=== PATIENT | female | born 2000 | race Caucasian/White ===

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

== ENCOUNTER → 2019-01-10 | Outpatient (CLI) | payer OTHER ==
[2019-01-10 18:30] LABS: T.VAGINALIS (WET MOUNT) NO TRICHOMONAS SEEN
[2019-01-10 18:31] LABS: EPITHELIALS (WET MOUNT) 3+ EPITHELIALS SEEN; WBCS (WET MOUNT) RARE WBCS SEEN; YEAST (WET MOUNT) NO YEAST SEEN
[2019-01-10 20:16] LABS: CHLAM PCR NOT DETECTED (NOT DETECT)
== END ==
LOC: LAB 18:22
PROVIDERS: ATTEND Nurse Practitioner Acute Care
DX: N89.8 Other specified noninflammatory disorders of vagina (principal)
CPT/HCPCS: 87210; 87491; 87591

== ENCOUNTER 2019-03-01 12:42 | Emergency (ER) | payer OTHER ==
--- NOTE | 2019-03-01 13:25 | ER Document Report ---
ED Medical Screen (RME) - General Chief Complaint: Abdominal Pain Stated Complaint: NAUSEA Time Seen by Provider: 03/01/19 13:18 Primary Care Provider: KASEY ROY NP [Primary Care Provider] - Follow up as needed Notes: Patient is a 18-year-old female who presents to the emergency department with a chief complaint of lower abdominal pain. Her pain is on bilateral signs. States that her last menstrual cycle was on 18 February, but states that it was very light and not her normal. She states that she feels nauseated. Denies any vomiting. She has history of an IUD placement. States that she has vaginal dis charge, but nothing out of the ordinary and denies any foul odors. Patient states that she took tests at home and they were all negative. Exam: Mildly tender bilateral lower pelvic area. Exam limited due to patient in sitting position. I have greeted and performed a rapid initial assessment of this patient. A comprehensive ED assessment and evaluation of the patient, analysis of test results and completion of medical decision making process will be conducted by an additional ED providers. TRAVEL OUTSIDE OF THE [place] IN LAST 30 DAYS: No - Related Data Allergies/Adverse Reactions: No Known Allergies Allergy (Verified 03/01/19 13:14) Past Medical History - Social History Chew tobacco use (# tins/day): No Frequency of alcohol use: None Drug Abuse: None Renal/ Medical History: Denies: Hx Peritoneal Dialysis Physical Exam - Vital signs Vitals: Temp Pulse BP Pulse Ox 98.6 F 85 122/70 98 03/01/19 12:47 03/01/19 12:47 03/01/19 12:47 03/01/19 12:47 Course - Vital Signs Vital signs: Temp Pulse Resp BP Pulse Ox 98.6 F 85 122/70 98 03/01/19 12:47 03/01/19 12:47 03/01/19 12:47 03/01/19 12:47 Doctor's Discharge - Discharge Referrals: KASEY ROY NP [Primary Care Provider] - Follow up as needed
[2019-03-01 13:53] LABS: ABSOLUTE EOSINOPHILS # (AUTO) 0.1 10^3/uL (0.0-0.6); ABSOLUTE LYMPHOCYTES (AUTO) 1.7 10^3/uL (0.5-4.7); ABSOLUTE MONOCYTES (AUTO) 0.6 10^3/uL (0.1-1.4); ABSOLUTE NEUT (AUTO) 5.2 10^3/uL (1.7-8.2); BASOPHILS % (AUTO) 0.5 % (0-2); EOSINOPHILS % (AUTO) 0.9 % (0-6); HEMATOCRIT 42.1 % (36.0-47.0); HEMOGLOBIN 14.4 g/dL (12.0-15.5); LYMPHOCYTES % (AUTO) 22.6 % (13-45); MEAN CORPUSCULAR HEMOGLOBIN 29.4 pg (27.0-33.4); MEAN CORPUSCULAR HGB CONC 34.2 g/dL (32.0-36.0); MEAN CORPUSCULAR VOLUME 86 fl (80-97); MONOCYTES % (AUTO) 7.8 % (3-13); PLATELET COUNT 208 10^3/uL (150-450); RED BLOOD COUNT 4.89 10^6/uL (3.72-5.28); RED CELL DISTRIBUTION WIDTH 13.1 % (11.5-14.0); SEGMENTED NEUTROPHILS % (AUTO) 68.2 % (42-78); TOTAL CELLS COUNTED % (AUTO) 100 %; WHITE BLOOD COUNT 7.7 10^3/uL (4.0-10.5)
[2019-03-01 14:25] LABS: ALBUMIN 4.6 g/dL (3.5-5.0); ALKALINE PHOSPHATASE 48 U/L (38-126); ANION GAP 9 (5-19); ASPARTATE AMINO TRANSFERASE 23 U/L (14-36); BILIRUBIN,TOTAL 0.6 mg/dL (0.2-1.3); BLOOD UREA NITROGEN 9 mg/dL (7-20); CALCIUM 9.5 mg/dL (8.4-10.2); CARBON DIOXIDE 29 mmol/L (22-30); CHLORIDE 100 mmol/L (98-107); GLUCOSE 78 mg/dL (75-110); POTASSIUM 4.1 mmol/L (3.6-5.0); TOTAL PROTEIN 7.7 g/dL (6.3-8.2)
[2019-03-01] MEDS ORDERED: KETOROLAC TROMETHAMINE INJ/PF 30 MG/1 ML SDV IM ONE (17:19)
--- NOTE | 2019-03-01 17:19 | RADIOLOGY REPORT (SQ) ---
EXAM DESCRIPTION: U/S NON OB PEL TV W/DOPPLER COMPLETED DATE/TIME: 03/01/2019 5:05 pm REASON FOR STUDY: pelvic pain LMP 02/18/2019 COMPARISON: None. TECHNIQUE: Dynamic and static grayscale images acquired of the pelvis via transvaginal approach and recorded on PACS. Additional selected color Doppler and spectral images recorded. LIMITATIONS: None. FINDINGS: UTERUS: Contour normal. No mass. ENDOMETRIAL STRIPE: No focal or generalized thickening. No masses. CERVIX: 2.7 cm. No nabothian cysts. RIGHT OVARY AND DOPPLER: Normal size. No worrisome masses. Normal arterial vascular flow without evid ence for torsion. 1.4 x 0.9 x 1.1 cm cyst. LEFT OVARY AND DOPPLER: Normal size. No worrisome masses. Normal arterial vascular flow without evide nce for torsion. FREE FLUID: None noted. OTHER: No other significant finding. MEASUREMENTS: UTERUS: 7.8 x 3.5 x 3.1 cm. ENDOMETRIAL STRIPE: 6 mm. RIGHT OVARY: 3 x 2.3 x 2.4 cm. LEFT OVARY: 2.2 x 2.2 x 1.2 cm. IMPRESSION: NORMAL TRANSVAGINAL PELVIC ULTRASOUND. TECHNICAL DOCUMENTATION: JOB ID: [id number] [email or web address]- All Rights Reserved Rev-10/09 Reading location - IP/workstation name: [email or web address]
--- NOTE | 2019-03-01 17:26 | ER Document Report ---
ED GI/ - General Chief Complaint: Abdominal Pain Stated Complaint: NAUSEA Time Seen by Provider: 03/01/19 13:18 Primary Care Provider: KASEY ROY NP [NURSE PRACTITIONER] - Follow up as needed Mode of Arrival: Ambulatory Information source: Patient Notes: 18-year-old female presented to ED for complaint of lower abdominal pain. She does states that her last menstrual period was February 18. She states she has had an IUD in the past but does not have one at this time. She states she is not on control in is not actively trying to get but is not preventing it. She states she has not had any nausea or vomiting she has not had any pain or burning with urination no dysuria. She states she does have a normal white vaginal discharge. She states she has had a blood pressure of 90s over 60s for a couple weeks. She states her normal is 120s over 60s to 70s. Patient is alert oriented respirations regular nonlabored speaking in full sentences. Her blood work is completely normal she is not . Urine has been sent and we are waiting for those results. The ultrasound shows the right ovary a little bigger than the left but no other significant findings. TRAVEL OUTSIDE OF THE [place] IN LAST 30 DAYS: No - HPI Patient complains to provider of: Onset: Other - 2 days for the pelvic pain, white discharge for couple weeks, low blood pressure for couple weeks Quality of pain: Achy, Cramping Severity at maximum: Mild Severity in ED: Mild, Moderate Pain Level: 2 Location: Pelvis - Bilateral, Other - Headache intermittently Vaginal bleeding (Compared to normal period): None LMP: 02/18/2019 Associated symptoms: Vaginal discharge - Her normal white discharge, Other - States her last menstrual period on 02/18 was only lasted 2 days and was very light. denies: Dysuria Exacerbated by: Denies Relieved by: Denies Similar symptoms previously: Yes Recently seen / treated by doctor: No - Related Data Allergies/Adverse Reactions: No Known Allergies Allergy (Verified 03/01/19 13:14) Past Medical History - General Information source: Patient - Social History Smoking Status: Never Smoker Chew tobacco use (# tins/day): No Frequency of alcohol use: None Drug Abuse: None Lives with: Family Family History: Reviewed & Not Pertinent Patient has suicidal ideation: No Patient has homicidal ideation: No - Past Medical History Cardiac Medical History: Reports: None Pulmonary Medical History: Reports: None EENT Medical History: Reports: None Endocrine Medical History: Reports: None Renal/ Medical History: Reports: None Malignancy Medical History: Reports: None GI Medical History: Reports: None Musculoskeletal Medical History: Reports None Skin Medical History: Reports None Psychiatric Medical History: Reports: None Traumatic Medical History: Reports: None Infectious Medical History: Reports: None Surgical Hx: Negative Past Surgical History: Reports: None - Immunizations Immunizations up to date: Yes Hx Diphtheria, Pertussis, Tetanus Vaccination: Yes Review of Systems - Review of Systems Constitutional: No symptoms reported EENT: No symptoms reported Cardiovascular: No symptoms reported Respiratory: No symptoms reported Gastrointestinal: No symptoms reported Genitourinary: No symptoms reported Female Genitourinary: Vaginal discharge, Other - Pelvic tenderness. denies: Vaginal odor - Normal white Musculoskeletal: No symptoms reported Skin: No symptoms reported Hematologic/Lymphatic: No symptoms reported Neurological/Psychological: No symptoms reported -: Yes All other systems reviewed and negative Physical Exam - Vital signs Vitals: Temp Pulse BP Pulse Ox 98.6 F 85 122/70 98 03/01/19 12:47 03/01/19 12:47 03/01/19 12:47 03/01/19 12:47 Interpretation: Normal - General General appearance: Appears well, Alert - HEENT Head: Normocephalic, Atraumatic Eyes: Normal Pupils: PERRL - Respiratory Respiratory status: No respiratory distress Chest status: Nontender Breath sounds: Normal Chest palpation: Normal - Cardiovascular Rhythm: Regular Heart sounds: Normal auscultation Murmur: No - Abdominal Inspection: Normal Distension: No distension Bowel sounds: Normal Tenderness: Tender - Very mild pelvic tenderness does not want a pelvic or swabs done she states she does not need this and does not want it done Organomegaly: No organomegaly - Back Back: Normal, Nontender - Extremities General upper extremity: Normal inspection, Nontender, Normal color, Normal ROM, Normal temperature General lower extremity: Normal inspection, Nontender, Normal color, Normal ROM, Normal temperature, Normal weight bearing. No: Ryan's sign - Neurological Neuro grossly intact: Yes Cognition: Normal Orientation: AAOx4 Noe Coma Scale Eye Opening: Spontaneous Noe Coma Scale Verbal: Oriented Noe Coma Scale Motor: Obeys Commands Noe Coma Scale Total: 15 Speech: Normal Motor strength normal: LUE, RUE, LLE, RLE Sensory: Normal - Psychological Associated symptoms: Normal affect, Normal mood - Skin Skin Temperature: Warm Skin Moisture: Dry Skin Color: Normal Course - Re-evaluation Re-evalutation: 03/02/19 02:35 Labs and ultrasound results discussed with patient and written report of labs and ultrasound given to patient. There is no obvious reason for the pain and discomfort patient is having. There is no obvious abnormalities on the labs or ultrasound. Patient was discharged home with instructions to please follow-up with her primary care doctor. Patient verbalized understanding and agreement with treatment plan before she was discharged. - Vital Signs Vital signs: Temp Pulse Resp BP Pulse Ox 98.6 F 65 18 105/65 100 03/01/19 12:47 03/01/19 17:40 03/01/19 17:40 03/01/19 17:40 03/01/19 17:40 - Laboratory Result Diagrams: 03/01/19 13:30 03/01/19 13:30 Laboratory results interpreted by me: 03/01/19 13:25 Urine Urobilinogen 2.0 H - Diagnostic Test Radiology reviewed: Image reviewed, Reports reviewed Discharge - Discharge Clinical Impression: Tenderness of female pelvic organs Condition: Stable Disposition: HOME, SELF-CARE Additional Instructions: PELVIC PAIN: There are many causes of pain in the pelvic area. The cause could be the tubes, ovaries, uterus, intestines, appendix, pelvic muscles and connective tissue, or the urinary tract. The cause of your pelvic pain is not clear. However, it seems safe to treat you outside the hospital. If the pain sounds like a temporary problem, we sometimes wait to see if it goes away. Other patients may need additional tests, such as pelvic ultrasound or cultures. Conditions may change. Call us or come back for reexamination if any problems occur, such as: (1) Pain that becomes more severe, steady, or becomes concentrated in one specific area. Also, pain that is more severe with movement or coughing. (2) Vomiting that persists or becomes more frequent. (3) Blood in the vomitus, urine, or bowel movements. Blood in the stool may have a tarry or black appearance. (4) Shaking chills or fever greater than 100 degrees. (5) The abdomen becomes more distended or swollen. (6) Bowel movements cease. (7) Heavy vaginal bleeding. TORADOL INJECTION: You have been given an injection of ketorolac tromethamine (Toradol). This is an excellent, safe drug for pain control. It also has potent antiinflammatory action. You should have significant pain relief within about one hour. Toradol is not addicting and is non-sedating. It does not interfere with driving or work. Call or return if you develop itching, hives, shortness of breath, or rash. Acetaminophen Acetaminophen may be taken for pain relief or fever control. It's much safer than aspirin, offering a wider range of "safe" dosages. It is safe during . Some brand names are Tylenol, Panadol, Datril, Anacin 3, Tempra, and Liquiprin. Acetaminophen can be repeated every four hours. The following are maximum recommended dosages: WEIGHT Dose Drops Elixir Chewable(80mg) (LBS.) drprs=droppers tsp=teaspoon 6 40 mg .4 ml (1/2) 6-11 80 mg .8 ml (full) 1/2 tsp 1 tab 12-16 120 mg 1 1/2 drprs 3/4 tsp 1 1/2 tabs 17-23 160 mg 2 drprs 1 tsp 2 tabs 24-30 240 mg 3 drprs 1 1/2 tsp 3 tabs 30-35 320 mg 2 tsp 4 tabs 36-41 360 mg 2 1/4 tsp 4 1/2 tabs 42-47 400 mg 2 1/2 tsp 5 tabs 48-53 480 mg 3 tsp 6 tabs 54-59 520 mg 3 1/4 tsp 6 1/2 tabs 60-64 560 mg 3 1/2 tsp 7 tabs 65-70 600 mg 3 3/4 tsp 7 1/2 tabs 71-76 640 mg 4 tsp 8 tabs 77-82 720 mg 4 1/2 tsp 9 tabs 83-88 800 mg 5 tsp 10 tabs >89 pounds or adults 650 mg to 900 mg Acetaminophen can be repeated every four hours. Maximum daily dose not to exceed 4000 mg. These maximum recommended dosages are slightly higher than the dosages written on the product container, but these dosages are very safe and well below the toxic dosage for acetaminophen. Ibuprofen Ibuprofen is an excellent, safe drug for pain control. In addition, it has potent antiinflammatory effects which are beneficial, especially in the treat ment of injuries, arthritis, or tendonitis. It's best to take ibuprofen with food. Persons with ulcer disease or allergy to aspirin should notify their physician of this before taking ibuprofen. Take the medication exactly as prescribed. Don't take additional doses unless instructed to do so by your doctor. If you develop wheezing, shortness of breath, hives, faintness, stomach pain, vomiting, or dark black stools, return for re-evaluation at once. FOLLOW-UP CARE: If you have been referred to a physician for follow-up care, call the physicians office for an appointment as you were instructed or within the next two days. If you experience worsening or a significant change in your symptoms, notify the physician immediately or return to the Emergency Department at any ti me for re-evaluation. Referrals: KASEY ROY NP [NURSE PRACTITIONER] - Follow up as needed
[2019-03-01 17:36] LABS: APPEARANCE,URINE SLIGHTLY-CLOUDY; BILIRUBIN,URINE NEGATIVE (NEGATIVE); COLOR,URINE YELLOW; GLUCOSE, URINE NEGATIVE (NEGATIVE); KETONES,URINE NEGATIVE (NEGATIVE); LEUKOCYTE ESTERASE,URINE NEGATIVE (NEGATIVE); NITRITE,URINE NEGATIVE (NEGATIVE); PROTEIN,URINE NEGATIVE (NEGATIVE); URINE SPECIFIC GRAVITY 1.019
[2019-03-01 17:44] VITALS: BP 105/65
== END 2019-03-01 17:42 | disposition home or self-care (01) ==
LOC: ER 12:42
DX: R10.819 Abdominal tenderness, unspecified site (principal); R10.2 Pelvic and perineal pain; R51 Headache; N89.8 Other specified noninflammatory disorders of vagina
CPT/HCPCS: 36415; 84702; 84703; 85025; 80053; 81001; 76830; 93976; J1885; 96372; 99284

== ENCOUNTER 2019-05-04 11:13 | Emergency (ER) | payer OTHER ==
[2019-05-04 12:10] LABS: ABSOLUTE EOSINOPHILS # (AUTO) 0.1 10^3/uL (0.0-0.6); ABSOLUTE LYMPHOCYTES (AUTO) 2.6 10^3/uL (0.5-4.7); ABSOLUTE MONOCYTES (AUTO) 0.6 10^3/uL (0.1-1.4); ABSOLUTE NEUT (AUTO) 4.9 10^3/uL (1.7-8.2); BASOPHILS % (AUTO) 0.3 % (0-2); EOSINOPHILS % (AUTO) 1.3 % (0-6); HEMATOCRIT 42.9 % (36.0-47.0); LYMPHOCYTES % (AUTO) 31.3 % (13-45); MEAN CORPUSCULAR HGB CONC 34.9 g/dL (32.0-36.0); MEAN CORPUSCULAR VOLUME 86 fl (80-97); PLATELET COUNT 208 10^3/uL (150-450); RED CELL DISTRIBUTION WIDTH 12.8 % (11.5-14.0); SEGMENTED NEUTROPHILS % (AUTO) 60.1 % (42-78); TOTAL CELLS COUNTED % (AUTO) 100 %; WHITE BLOOD COUNT 8.2 10^3/uL (4.0-10.5)
[2019-05-04 12:14] LABS: AMORPHOUS SEDIMENT,URINE TRACE /HPF; APPEARANCE,URINE CLOUDY; BILIRUBIN,URINE NEGATIVE (NEGATIVE); COLOR,URINE YELLOW; GLUCOSE, URINE NEGATIVE (NEGATIVE); KETONES,URINE NEGATIVE (NEGATIVE); LEUKOCYTE ESTERASE,URINE TRACE (NEGATIVE); NITRITE,URINE NEGATIVE (NEGATIVE); PROTEIN,URINE NEGATIVE (NEGATIVE); URINE SPECIFIC GRAVITY 1.021; UROBILINOGEN,URINE NEGATIVE mg/dL (<2.0)
[2019-05-04 12:28] LABS: ALBUMIN 4.5 g/dL (3.5-5.0); ALKALINE PHOSPHATASE 41 U/L (38-126); ANION GAP 11 (5-19); ASPARTATE AMINO TRANSFERASE 24 U/L (14-36); BILIRUBIN,TOTAL 0.7 mg/dL (0.2-1.3); BLOOD UREA NITROGEN 10 mg/dL (7-20); CALCIUM 9.2 mg/dL (8.4-10.2); CARBON DIOXIDE 26 mmol/L (22-30); CHLORIDE 104 mmol/L (98-107); GLUCOSE 73 mg/dL (75-110); POTASSIUM 3.6 mmol/L (3.6-5.0); TOTAL PROTEIN 7.5 g/dL (6.3-8.2)
--- NOTE | 2019-05-04 13:10 | ER Document Report ---
ED General - General Chief Complaint: Abdominal Pain Stated Complaint: ABDOMINAL PAIN Time Seen by Provider: 05/04/19 13:09 Mode of Arrival: Ambulatory Information source: Patient Notes: This 19-year-old female presents emergency department with complaints of abdominal pain, nausea, and diarrhea once in the past 3 days. Patient reports she took 2 home test and they were both positive. She denies fever vomiting. Denies pain with void. Denies vaginal discharge. Reports she does have a history of ulcer but is not under any kind of treatment. TRAVEL OUTSIDE OF THE [place] IN LAST 30 DAYS: No - HPI Onset: Other Onset/Duration: Persistent Quality of pain: Cramping Associated symptoms: Diarrhea Exacerbated by: Denies Relieved by: Denies Similar symptoms previously: No Recently seen / treated by doctor: No - Related Data Allergies/Adverse Reactions: No Known Allergies Allergy (Verified 03/01/19 13:14) Past Medical History - General Information source: Patient Last Menstrual Period: April 11 - Social History Smoking Status: Never Smoker Frequency of alcohol use: None Drug Abuse: None Occupation: Nursing school Lives with: Family Family History: Reviewed & Not Pertinent Patient has suicidal ideation: No Patient has homicidal ideation: No Renal/ Medical History: Denies: Hx Peritoneal Dialysis GI Medical History: Reports: Hx Irritable Bowel, Hx Ulcer Surgical Hx: Negative - Immunizations Immunizations up to date: Yes Hx Diphtheria, Pertussis, Tetanus Vaccination: Yes Review of Systems - Review of Systems Notes: Review HPI for review of systems., All other systems negative Physical Exam - Vital signs Vitals: Temp Pulse Resp BP Pulse Ox 98.0 F 79 16 105/64 100 05/04/19 12:10 05/04/19 12:10 05/04/19 12:10 05/04/19 12:10 05/04/19 12:10 - Notes Notes: PHYSICAL EXAMINATION: GENERAL: Well-appearing and in no acute distress HEAD: Atraumatic, normocephalic. EYES: Pupils equal round and reactive to light, extraocular movements intact, sclera anicteric, conjunctiva are normal. ENT: nares patent, oropharynx clear without exudates. Moist mucous membranes. NECK: Normal range of motion, supple without lymphadenopathy LUNGS: CTAB and equal. No wheezes rales or rhonchi. HEART: Regular rate and rhythm without murmurs ABDOMEN: Soft, no tenderness. No guarding, no rebound EXTREMITIES: Normal range of motion, NEUROLOGICAL: Cranial nerves grossly intact. Normal sensory/motor exams. PSYCH: Normal mood, normal affect. SKIN: Warm, Dry, normal turgor, no rashes or lesions noted Course - Re-evaluation Re-evalutation: 05/04/19 13:22 19-year-old female presents with complaints of lower abdominal pain nausea and diarrhea x1 in the past 3 days. Denies fever and vomiting. Reports she took 2 home test and they were both positive. Patient would like a serum blood test for . 05/04/19 HCG 26., Pt was instructed on this, instructed on no IUP visualized on US probably due to early but cannot rule out ectopic. she was educated on importance of fu hcg, need for repeat US, instructed on importance of return to ED for extreme pain, vaginal bleeding. She verbalized understanding to all instructions. 05/04/19 11:55 05/04/19 11:55 MCV 86 fl (80-97) 05/04/19 11:55 MCH 30.0 pg (27.0-33.4) 05/04/19 11:55 MCHC 34.9 g/dL (32.0-36.0) 05/04/19 11:55 RDW 12.8 % (11.5-14.0) 05/04/19 11:55 Seg Neutrophils % 60.1 % (42-78) 05/04/19 11:55 Chloride 104 mmol/L (98-107) 05/04/19 11:55 Carbon Dioxide 26 mmol/L (22-30) 05/04/19 11:55 Anion Gap 11 (5-19) 05/04/19 11:55 Est GFR ( Amer) > 60 (>60) 05/04/19 11:55 Glucose 73 mg/dL (75-110) L 05/04/19 11:55 Calcium 9.2 mg/dL (8.4-10.2) 05/04/19 11:55 Total Bilirubin 0.7 mg/dL (0.2-1.3) 05/04/19 11:55 AST 24 U/L (14-36) 05/04/19 11:55 Alkaline Phosphatase 41 U/L (38-126) 05/04/19 11:55 Total Protein 7.5 g/dL (6.3-8.2) 05/04/19 11:55 Albumin 4.5 g/dL (3.5-5.0) 05/04/19 11:55 Lipase 141.5 U/L (23-300) 05/04/19 11:55 Serum HCG, Qual POSITIVE (NEGATIVE) H 05/04/19 11:55 Urine Color YELLOW 05/04/19 11:55 Urine Appearance CLOUDY 05/04/19 11:55 Urine pH 7.0 (5.0-9.0) 05/04/19 11:55 Ur Specific [place] 1.021 05/04/19 11:55 Urine Protein NEGATIVE mg/dL (NEGATIVE) 05/04/19 11:55 Urine Glucose (UA) NEGATIVE mg/dL (NEGATIVE) 05/04/19 11:55 Urine Ketones NEGATIVE mg/dL (NEGATIVE) 05/04/19 11:55 Urine Blood NEGATIVE (NEGATIVE) 05/04/19 11:55 Urine Nitrite NEGATIVE (NEGATIVE) 05/04/19 11:55 Ur Leukocyte Esterase TRACE (NEGATIVE) H 05/04/19 11:55 Urine WBC (Auto) 0 /HPF 05/04/19 11:55 Obstetrics Ultrasound 05/04/19 14:00 IMPRESSION: NO VISUALIZED INTRA- OR EXTRAUTERINE . ECTOPIC CANNOT BE EXCLUDED. FOLLOW-UP ULTRASOUND AND SERIAL BHCG LEVELS STRONGLY RECOMMENDED TO ACCURATELY ASSESS STATUS. 05/04/19 19:13 - Vital Signs Vital signs: Temp Pulse Resp BP Pulse Ox 98.2 F 72 16 122/66 100 05/04/19 16:25 05/04/19 16:25 05/04/19 16:25 05/04/19 16:25 05/04/19 16:25 - Laboratory Result Diagrams: 05/04/19 11:55 05/04/19 11:55 Laboratory results interpreted by me: 05/04/19 05/04/19 05/04/19 11:55 11:55 11:55 Glucose 73 L Serum HCG, Qual POSITIVE H Beta HCG, Quant Ur Leukocyte Esterase TRACE H 05/04/19 11:55 Glucose Serum HCG, Qual Beta HCG, Quant 26.60 H Ur Leukocyte Esterase - Diagnostic Test Radiology reviewed: Reports reviewed Discharge - Discharge Clinical Impression: Abdominal pain Qualifiers: Abdominal location: lower abdomen, unspecified Qualified Code(s): R10.30 - Lower abdominal pain, unspecified Qualifiers: Weeks of gestation: less than 8 weeks Qualified Code(s): Z3A.01 - Less than 8 weeks gestation of Condition: Stable Disposition: HOME, SELF-CARE Instructions: Abdominal Pain ([facility]), Ectopic Precaution ([facility]), [employer] Doctors, [facility], ([facility]) Additional Instructions: *You have been evaluated for abdominal pain, *Your ultrasound was inconclusive. This may be due because it is an early or you may have an ectopic regnancy *Follow-up in 2 days for repeat hCG. Plan a repeat ultrasound in 1 week *Your hCG level was 26.60. You may call [facility] at [phone] on from 10a - 10 p *Follow up with a primary care provider within one week *Return to ED for worsening condition, changes, needs *Return to ED if not better in 24 hours Forms: Follow-Up Laboratory Testing
--- NOTE | 2019-05-04 16:02 | RADIOLOGY REPORT (SQ) ---
EXAM DESCRIPTION: U/S OB TRANSVAGINAL W/O DOP COMPLETED DATE/TIME: 05/04/2019 3:43 pm REASON FOR STUDY: preg abd pain COMPARISON: None. TECHNIQUE: Transvaginal static and realtime grayscale images acquired of the pelvis. Additional vicente cted spectral and color Doppler images recorded. All images stored on PACs. CLINICAL AGE: Last menses 04/11/2019 BHCG: Pending LIMITATIONS: None. FINDINGS: UTERUS: No visualized intrauterine . Uterus is 7 x 4.5 x 3 cm in size RIGHT ADNEXA: Normal ovary with normal vascular flow. Right ovary 3.7 x 2.9 x 2.3 cm. No adnexal free fluid. No adnexal masses. LEFT ADNEXA: Normal ovary with normal vascular flow. Left ovary 2.6 x 3 x 1.6 cm No adnexal free fluid. No adnexal masses. FREE FLUID: None. OTHER: No other significant finding. IMPRESSION: NO VISUALIZED INTRA- OR EXTRAUTERINE . ECTOPIC CANNOT BE EXCLUDED. FOLLOW-UP ULTRASOUND AND SERIAL BHCG LEVELS STRONGLY RECOMMENDED TO ACCURATELY ASSESS STATU S. TECHNICAL DOCUMENTATION: JOB ID: [id number] [employer]- All Rights Reserved Reading location - IP/workstation name: [email or web address]
[2019-05-04 16:26] VITALS: BP 122/66
== END 2019-05-04 16:25 | disposition home or self-care (01) ==
LOC: ER 11:13
DX: O26.91 Pregnancy related conditions, unspecified, first trimester (principal); R10.30 Lower abdominal pain, unspecified; R11.0 Nausea; R19.7 Diarrhea, unspecified; Z3A.01 Less than 8 weeks gestation of pregnancy
CPT/HCPCS: 36415; 76817; 80053; 81001; 81025; 83690; 84702; 84703; 85025; 99284

== ENCOUNTER → 2019-05-06 | Outpatient (CLI) | payer OTHER | LOC: OD 13:05 | PROVIDERS: ATTEND Nurse Practitioner Family | DX: O26.899 Other specified pregnancy related conditions, unspecified trimester (principal); R10.9 Unspecified abdominal pain | CPT/HCPCS: 36415; 84702 ==

== ENCOUNTER 2019-05-13 04:22 | Emergency (ER) | payer OTHER ==
[2019-05-13 04:27] VITALS: BP 138/77
[2019-05-13] MEDS ORDERED: ONDANSETRON 4 MG TAB.RAPDIS PO ONE (04:34)
[2019-05-13 05:22] LABS: HEMATOCRIT 46.2 % (36.0-47.0); MEAN CORPUSCULAR HEMOGLOBIN 29.9 pg (27.0-33.4); MEAN CORPUSCULAR HGB CONC 34.6 g/dL (32.0-36.0); MEAN CORPUSCULAR VOLUME 86 fl (80-97); PLATELET COUNT 194 10^3/uL (150-450); RED BLOOD COUNT 5.34 10^6/uL (3.72-5.28); RED CELL DISTRIBUTION WIDTH 13.2 % (11.5-14.0); WHITE BLOOD COUNT 13.5 10^3/uL (4.0-10.5)
[2019-05-13 05:31] LABS: APPEARANCE,URINE SLIGHTLY-CLOUDY; BILIRUBIN,URINE NEGATIVE (NEGATIVE); COLOR,URINE YELLOW; GLUCOSE, URINE NEGATIVE (NEGATIVE); KETONES,URINE 20 mg/dL (NEGATIVE); LEUKOCYTE ESTERASE,URINE NEGATIVE (NEGATIVE); NITRITE,URINE NEGATIVE (NEGATIVE); PROTEIN,URINE NEGATIVE (NEGATIVE); URINE SPECIFIC GRAVITY 1.024; UROBILINOGEN,URINE NEGATIVE mg/dL (<2.0)
[2019-05-13 05:34] LABS: ALBUMIN 4.9 g/dL (3.5-5.0); ALKALINE PHOSPHATASE 48 U/L (38-126); ANION GAP 11 (5-19); ASPARTATE AMINO TRANSFERASE 24 U/L (14-36); BILIRUBIN,DIRECT 0.1 mg/dL (0.0-0.4); BILIRUBIN,TOTAL 1.2 mg/dL (0.2-1.3); BLOOD UREA NITROGEN 10 mg/dL (7-20); CALCIUM 9.3 mg/dL (8.4-10.2); CARBON DIOXIDE 25 mmol/L (22-30); CHLORIDE 105 mmol/L (98-107); GLUCOSE 113 mg/dL (75-110); TOTAL PROTEIN 8.1 g/dL (6.3-8.2)
[2019-05-13 05:48] LABS: ABSOLUTE LYMPHOCYTES# (MANUAL) 0.5 10^3/uL (0.5-4.7); ABSOLUTE MONOCYTES # (MANUAL) 0.5 10^3/uL (0.1-1.4); BAND NEUTROPHILS % (MANUAL) 2 % (3-5); BASOPHILS % (MANUAL) 0 % (0-2); EOSINOPHILS % (MANUAL) 0 % (0-6); LYMPHOCYTES % (MANUAL) 4 % (13-45); MONOCYTES % (MANUAL) 4 % (3-13); PLATELET COMMENT ADEQUATE; RBC MORPHOLOGY COMMENT N; SEGMENTED NEUTROPHILS % (MAN) 90 % (42-78); TOTAL CELLS COUNTED 100
[2019-05-13] MEDS ORDERED: METOCLOPRAMIDE HCL INJ/PF 10 MG/2 ML SDV IV ONE (09:01)
--- NOTE | 2019-05-13 09:08 | ER Document Report ---
ED General - General Chief Complaint: Nausea/Vomiting/Diarrhea Stated Complaint: VOMITING Time Seen by Provider: 05/13/19 08:47 TRAVEL OUTSIDE OF THE [place] IN LAST 30 DAYS: No - HPI Notes: 19-year-old female 1 para 0 at approximately 4 weeks EGA who has not yet had any care now presenting with a chief complaint of nausea vomiting and diarrhea past 12 hours. 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 She reports low-grade temperature. She has had in excess of 10 stools. She denies seeing any blood with her emesis or diarrhea. Pertinent prior history: Takes no regular medications. No known allergies. Non-smoker. Does not regularly consume alcohol. No surgery. - Related Data Allergies/Adverse Reactions: No Known Allergies Allergy (Verified 03/01/19 13:14) Home Medications: vitamins Past Medical History - General Information source: Patient, Friend - Social History Smoking Status: Never Smoker Family History: Reviewed & Not Pertinent Patient has suicidal ideation: No Patient has homicidal ideation: No Renal/ Medical History: Denies: Hx Peritoneal Dialysis GI Medical History: Reports: Hx Irritable Bowel, Hx Ulcer - Immunizations Immunizations up to date: Yes Hx Diphtheria, Pertussis, Tetanus Vaccination: Yes Review of Systems - Review of Systems Notes: Constitutional: As per HPI. HENT: Negative for sore throat. Eyes: Negative for visual changes. Cardiovascular: Negative for chest pain. Respiratory: Negative for shortness of breath. Gastrointestinal: As per HPI. Genitourinary: Negative for dysuria. Musculoskeletal: Negative for back pain. Skin: Negative for rash. Neurological: Negative for headaches, weakness or numbness. 10 point ROS negative except as marked above and in HPI. Physical Exam - Vital signs Vitals: Temp Pulse Resp BP Pulse Ox 99.3 F 113 H 20 138/77 H 96 05/13/19 04:26 05/13/19 04:26 05/13/19 04:26 05/13/19 04:26 05/13/19 04:26 - Notes Notes: GENERAL: Well-developed female approximately stated age appears dehydrated. SKIN: Pale. Good turgor no rashes. HEAD: Normocephalic atraumatic. EYES: PERRLA. Conjunctivae and sclerae clear. EARS: CANALS AND TMS CLEAR. NOSE: CLEAR. MOUTH: Tacky oral mucosa. Good dentition. No stridor or edema. No drooling. NECK: Supple. No masses or thyromegaly. No adenopathy. Carotids 2+ without bruits. No JVD. BACK: Symmetrical without tenderness. CHEST: Respirations unlabored. Breath sounds clear and symmetrical. HEART: Tachycardic regular rhythm. No murmur gallop or rub. ABDOMEN: Soft nontender without masses, organomegaly or rebound. Bowel sounds hyperactive. No bruits. GENITALIA: Deferred. EXTREMITIES: No edema. No calf tenderness. Cap refill less than 1.5 seconds. Dorsalis pedis and posterior tibial pulses 2 + and symmetrical. NEUROLOGICAL: GCS 15. Alert and oriented x3. Normal gait. Fluent speech. Cranial nerves II through XII intact. Sensorimotor and cerebellar normal. Normal tone. Course - Re-evaluation Re-evalutation: 05/13/19 09:07 Patient looks dehydrated. Clinically it is likely she has norovirus. She is in first trimester . I will hydrate her with lactated Ringer's and give her some metoclopramide for her nausea. She has ketonuria at this time consistent with her dehydrated state. Repeat urinalysis after hydration and assuming we can successfully reestablish oral intake and improve her dehydration I would anticipate outpatient management. 05/13/19 09:08 - Vital Signs Vital signs: Temp Pulse Resp BP Pulse Ox 99.3 F 113 H 20 138/77 H 96 05/13/19 04:26 05/13/19 04:26 05/13/19 04:26 05/13/19 04:26 05/13/19 04:26 - Laboratory Result Diagrams: 05/13/19 04:50 05/13/19 04:50 Laboratory results interpreted by me: 05/13/19 05/13/19 05/13/19 04:50 04:50 04:50 WBC 13.5 H RBC 5.34 H Hgb 16.0 H Seg Neuts % (Manual) 90 H Band Neutrophils % 2 L Lymphocytes % (Manual) 4 L Abs Neuts (Manual) 12.4 H Glucose 113 H Urine Ketones 20 H Urine Blood SMALL H Discharge - Discharge Clinical Impression: Dehydration, Acute gastroenteritis, at early stage Condition: Stable Disposition: AGAINST MEDICAL ADVICE
[2019-05-13] MEDS: RINGERS SOLUTION,LACTATED 1,000 ML IV PRN ×2 (09:16→10:36)
[2019-05-13 11:31] LABS: APPEARANCE,URINE CLEAR; BILIRUBIN,URINE NEGATIVE (NEGATIVE); COLOR,URINE YELLOW; GLUCOSE, URINE NEGATIVE (NEGATIVE); KETONES,URINE TRACE mg/dL (NEGATIVE); PROTEIN,URINE NEGATIVE (NEGATIVE); UROBILINOGEN,URINE NEGATIVE mg/dL (<2.0)
== END 2019-05-13 11:08 | disposition left against medical advice (07) ==
LOC: ER 04:22
DX: O99.611 Diseases of the digestive system complicating pregnancy, first trimester (principal); K52.9 Noninfective gastroenteritis and colitis, unspecified; O99.281 Endocrine, nutritional and metabolic diseases complicating pregnancy, first trimester; E86.0 Dehydration; O21.9 Vomiting of pregnancy, unspecified; O26.891 Other specified pregnancy related conditions, first trimester; R00.0 Tachycardia, unspecified; R82.4 Acetonuria; Z20.828 Contact with and (suspected) exposure to other viral communicable diseases; Z3A.00 Weeks of gestation of pregnancy not specified
CPT/HCPCS: 99284; 96361; 96374; 36415; 83690; 85025; 80053; 81001; S0119; J2765; J7120